=== PATIENT | female | born 1995 | race Asian ===

== ENCOUNTER 2016-09-08 23:10 | Emergency (ER) | payer BC, OTHER ==
[~2016-09-08] VITALS: Ht 160 cm; Wt 50.5 kg
[2016-09-08 23:10] VITALS: TEMP 36.5; Ht 160 cm; Wt 50.5 kg
[2016-09-09] MEDS ORDERED: PHENERGAN 25MG HOMEPACK PO ONE (02:30)
[2016-09-09] MEDS ORDERED: LEVONORGESTREL (EMERGENCY OC) 1.5 MG TAB PO ONE (02:30)
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
[2016-09-09 03:36] VITALS: BP 122/66; PULSE 94; O2SAT 100
== END 2016-09-09 03:38 | disposition home or self-care (01) ==
LOC: C.EDC 23:10 → EDBD 23:10 → C.EDC 09-09 03:38
DX: Z04.41 Encounter for examination and observation following alleged adult rape (principal); J45.909 Unspecified asthma, uncomplicated

== ENCOUNTER 2016-12-22 04:30 | Emergency (ER) | payer BC, OTHER ==
[~2016-12-22] VITALS: Ht 160 cm; Wt 50.9 kg
[2016-12-22 04:47] VITALS: TEMP 36.3; Ht 160 cm; Wt 50.9 kg
[2016-12-22] MEDS ORDERED: ONDANSETRON INJ 2 MG/ML 2 ML VIAL IV STA (05:09)
[2016-12-22] MEDS ORDERED: MoRPHine SULFATE 4 MG/ML 1 ML CARP\\VIAL IV ONE (05:15)
[2016-12-22] MEDS ORDERED: SODIUM CHLORIDE 0.9% 1000ML 1,000 ML IV ONE (05:15)
[2016-12-22 05:54] LABS: BUN/CREATININE RATIO 20.8 (10-20); CALCIUM 8.2 mg/dl (8.5-10.1); CREATININE 0.68 mg/dl (0.60-1.20); POTASSIUM 3.4 mmol/L (3.5-5.1)
[2016-12-22 05:58] LABS: BASO % 0.5 %; BASO ABS # 0.05 K/uL (0-0.2); COMPLETE YES; HEMATOCRIT 37.9 % (37-47); IG% 0.2 %; LYMPH % 21.9 %; LYMPH ABS # 2.27 K/uL (1.2-3.4); MEAN CELL VOLUME 83.7 fL (80-100); MEAN CORPUSCULAR HEMOGLOBIN 26.9 pg (25-34); MEAN CORPUSCULAR HGB CONC 32.2 g/dl (32-36); MEAN PLATELET VOLUME 8.8 fL (7.4-10.4); MONO % 6.2 %; NEUT % 70.2 %; PLATELET COUNT 267 K/uL (130-400); RED BLOOD COUNT 4.53 M/uL (4.2-5.4); WHITE BLOOD COUNT 10.37 K/uL (4.8-10.8)
[2016-12-22] MEDS ORDERED: ACETAMINOPHEN IV 100 ML IV ONE (06:15)
--- NOTE | 2016-12-22 06:30 | DIAGNOSTIC IMAGING REPORT ---
EXAMINATION: PELVIC ULTRASOUND CLINICAL HISTORY: RLQ abd pain PAIN COMPARISON STUDY: None FINDINGS: The uterus measured 9 cm. The endometrial stripe measured 18 mm. The right ovary measured 3.7 cm maximum dimension. Normal vascular flow. The left ovary measured 3.4 cm maximum dimension. Normal vascular flow. There is no ultrasonographic evidence of ovarian torsion. It should be noted that ovarian torsion can be present with normal Doppler ultrasonographic findings. There was no evidence of pathologic free pelvic fluid. IMPRESSION: Endometrial thickening possibly secondary to the patient's menstrual cycle versus endometrial hyperplasia. Otherwise negative study. Electronically signed by: Melo Moore M.D. 12/22/2016 6:28 AM Dictated Date/Time: 12/22/2016 6:27 AM
[2016-12-22] MEDS ORDERED: OPTIRAY 320 IV PRN (07:15)
--- NOTE | 2016-12-22 07:21 | EMERGENCY ROOM VISIT NOTE ---
History First contact with patient: 07:05 Chief Complaint: ABDOMINAL PAIN Stated Complaint: ABD PAIN Nursing Triage Summary: right lower abd pain unrelieved by motrin 1/2 hour ago pain sometimes dulled with motrin History of Present Illness Patient case was signed out to me at 0700 hrs. by Schuyler Hensley PA-C. Please refer to his note regarding the complete history of present illness. No other pertinent history was elicited. Review of Systems Please refer to Schuyler Hensley PA-C initial note. Past Medical/Surgical History Medical Problems: (1) Asthma (2) Shingles Family History Patient reports no known family medical history. Please refer to Schuyler Hensley PA-C initial note. Social History Smoking Status: Never Smoker Alcohol Use: occasionally Marital Status: single Housing Status: lives with roommate Occupation Status: [employer] student Social History: Please refer to Schuyler Hensley PA-C initial note. Current/Historical Medications Scheduled Sulfa/Trimethoprim (Bactrim Ds 800MG/160MG), 1 TAB PO BID Allergies Coded Allergies: No Known Allergies (Unverified , 12/22/16) Physical Exam Vital Signs Date Time Temp Pulse Resp B/P Pulse Ox O2 Delivery O2 Flow Rate FiO2 12/22/16 08:37 88 18 111/77 100 Room Air 12/22/16 07:10 78 16 109/74 99 Room Air 12/22/16 06:19 76 16 111/63 99 Room Air 12/22/16 04:47 36.3 86 16 118/82 100 Room Air Physical Exam Please refer to Schuyler Hensley PA-C initial note. Medical Decision & Procedures ER Provider Diagnostic Interpretation: ABDOMEN AND PELVIS CT WITH IV AND ORAL CONTRAST CT DOSE: 268.02 mGy.cm HISTORY: Pelvic pain RLQ abd pain TECHNIQUE: Multiaxial CT images of the abdomen and pelvis were performed following the use of intravenous and oral contrast. COMPARISON STUDY: 05/21/2014 FINDINGS: Lung bases are clear. Liver spleen and pancreas are unremarkable. The kidneys enhance uniformly. Bowel pattern is considered nonobstructive. The appendix is air-filled and is unremarkable. Uterus is anteflexed. There is rather significant thickening of the bladder wall. Possibility of cystitis is considered. There is trace amount of infiltrative change of the fat surrounding the bladder. Bowel pattern again is nonobstructive throughout. IMPRESSION: 1. Normal appendix. 2. Wall thickening of the bladder raising the possibility of cystitis. Correlation with urinalysis is suggested. 3. Study is otherwise negative. Electronically signed by: Melo Moore M.D. 12/22/2016 7:50 AM Dictated Date/Time: 12/22/2016 7:45 AM Laboratory Results 12/22/16 05:15 Red Blood Count 4.53, Mean Corpuscular Volume 83.7, Mean Corpuscular Hemoglobin 26.9, Mean Corpuscular Hemoglobin Concent 32.2, Mean Platelet Volume 8.8, Neutrophils (%) (Auto) 70.2, Lymphocytes (%) (Auto) 21.9, Monocytes (%) (Auto) 6.2, Eosinophils (%) (Auto) 1.0, Basophils (%) (Auto) 0.5, Neutrophils # (Auto) 7.29, Lymphocytes # (Auto) 2.27, Monocytes # (Auto) 0.64, Eosinophils # (Auto) 0.10, Basophils # (Auto) 0.05 12/22/16 05:15 Test 12/22/16 05:10 12/22/16 05:15 Urine Color YELLOW Urine Appearance CLEAR (CLEAR) Urine pH 6.0 (4.5-7.5) Urine Specific Jay 1.013 (1.000-1.030) Urine Protein NEG (NEG) Urine Glucose (UA) NEG (NEG) Urine Ketones NEG (NEG) Urine Occult Blood NEG (NEG) Urine Nitrite NEG (NEG) Urine Bilirubin NEG (NEG) Urine Urobilinogen NEG (NEG) Urine Leukocyte Esterase TRACE (NEG) Urine WBC (Auto) 5-10 /hpf (0-5) Urine RBC (Auto) 0-4 /hpf (0-4) Urine Hyaline Casts (Auto) 0 /lpf (0-5) Urine Epithelial Cells (Auto) >30 /lpf (0-5) Urine Bacteria (Auto) NEG (NEG) Urine Test NEG (NEG) White Blood Count 10.37 K/uL (4.8-10.8) Red Blood Count 4.53 M/uL (4.2-5.4) Hemoglobin 12.2 g/dL (12.0-16.0) Hematocrit 37.9 % (37-47) Mean Corpuscular Volume 83.7 fL (80-100) Mean Corpuscular Hemoglobin 26.9 pg (25-34) Mean Corpuscular Hemoglobin Concent 32.2 g/dl (32-36) Platelet Count 267 K/uL (130-400) Mean Platelet Volume 8.8 fL (7.4-10.4) Neutrophils (%) (Auto) 70.2 % Lymphocytes (%) (Auto) 21.9 % Monocytes (%) (Auto) 6.2 % Eosinophils (%) (Auto) 1.0 % Basophils (%) (Auto) 0.5 % Neutrophils # (Auto) 7.29 K/uL (1.4-6.5) Lymphocytes # (Auto) 2.27 K/uL (1.2-3.4) Monocytes # (Auto) 0.64 K/uL (0.11-0.59) Eosinophils # (Auto) 0.10 K/uL (0-0.5) Basophils # (Auto) 0.05 K/uL (0-0.2) RDW Standard Deviation 41.9 fL (36.4-46.3) RDW Coefficient of Variation 13.7 % (11.5-14.5) Immature Granulocyte % (Auto) 0.2 % Immature Granulocyte # (Auto) 0.02 K/uL (0.00-0.02) Anion Gap 4.0 mmol/L (3-11) Est Creatinine Clear Calc Drug Dose 105.2 ml/min Estimated GFR () 144.9 Estimated GFR (Non- 125.0 BUN/Creatinine Ratio 20.8 (10-20) Calcium Level 8.2 mg/dl (8.5-10.1) Total Bilirubin 0.4 mg/dl (0.2-1) Aspartate Amino Transf (AST/SGOT) 11 U/L (15-37) Alanine Aminotransferase (ALT/SGPT) 15 U/L (12-78) Alkaline Phosphatase 37 U/L (45-117) Total Protein 6.9 gm/dl (6.4-8.2) Albumin 3.5 gm/dl (3.4-5.0) Globulin 3.4 gm/dl (2.5-4.0) Albumin/Globulin Ratio 1.0 (0.9-2) Lipase 96 U/L (73-393) Medications Administered Medications (Trade) Dose Ordered Sig/Reji Route Start Time Stop Time Status Last Admin Dose Admin Morphine Sulfate 4 mg 4 mg NOW ONCE IV 5/6/17 05:15 12/22/16 05:16 DC 12/22/16 05:28 4 MG Sodium Chloride (Nss 1000ml) 1,000 ml @ 999 mls/hr Q1H1M ONCE IV 12/22/16 05:15 12/22/16 06:15 DC 12/22/16 05:15 999 MLS/HR Ondansetron HCl 4 mg 4 mg NOW STAT IV 12/22/16 05:09 12/22/16 05:11 DC 12/22/16 05:27 4 MG Acetaminophen (Ofirmev Iv) 100 ml @ 400 mls/hr NOW ONCE IV 12/22/16 06:15 12/22/16 06:29 DC 12/22/16 06:15 400 MLS/HR Medical Decision Patient case was signed out to me at 0700 hrs. patient was evaluated shortly after 7 AM by myself, and was resting comfortably consuming the CT contrast dye. She at this time notes the pain is dull, but tolerable. I informed her that if she would experience worsening pain she is to notify staff and she'll provide with more pain medication. At this time we're awaiting CT scan. Patient was reevaluated numerous times struck her stay. After the CT scan results were provided by the radiologist, I did inform the patient the findings. I did correlate with her urinalysis and it does not appear to be a convincing UTI at this time. The patient also requested I speak with her mother after verifying consent. I spoke with the patient's mother and discussed all the findings, as well as the patient. It appears that the patient is likely experiencing either a subclinical UTI, or what is more likely pain related to bowel distention secondary to gas. The patient is nontoxic in appearance, at this time appears stable for discharge. Her case was discussed with my attending, and the decision was made to treat for pain secondary to gas causing bowel distention. The mother requested that I provide the patient with an antibiotic for potential UTI in case you develop urinary symptoms in the next few days. I do believe this is reasonable as there is questionable thickening of the bladder on CT scan. The patient was provided a copy of her lab work and CT scan of which she is to follow-up with her family doctor for. They were educated upon management today's findings, educated upon the importance of follow-up, educated upon worrisome symptoms which to return and she was discharged home in good condition. In evaluation treatment this patient following differential diagnoses were entertained: UTI, pyelonephritis, renal calculi, appendicitis, mesenteric adenitis, epiploic appendage I disc, ovarian torsion, , among others. Impression Primary Impression: Right lower quadrant abdominal pain Additional Impressions: Bladder wall thickening Hypokalemia Departure Information Dispostion Home / Self-Care Condition GOOD Prescriptions Sulfa/Trimethoprim (Bactrim Ds 800MG/160MG) Tab 1 TAB PO BID for 5 Days, #10 TAB Prov: Rodri Guallpa PA-C 12/22/16 Referrals No Doctor, Assigned (PCP) Patient Instructions My [facility] Additional Instructions You have been treated in the Emergency Department your Abdominal Pain. Laboratory results and imaging studies have ruled out any emergent causes for your abdominal pain which would warrant admission or surgery. For pain control, you can use the following [id number] medicines (if >12 yo): - Regular strength (325mg/tab) Tylenol (acetaminophen) 2 tabs every 4-6 hours as needed. Do not exceed 12 tablets in a 24 hour period. Avoid taking more than 3 grams (3000 mg) of Tylenol per day. This includes any other sources of acetaminophen you may take on a regular basis. - Regular strength (200 mg/tab) Advil (ibuprofen) 1-2 tabs every 4-6 hours as needed. Do not exceed a dose of 3200 mg per day. Drink plenty of water and stay well hydrated. As with any trip to the Emergency Department, you should follow-up with your Primary Care Provider from today's visit. Return to the emergency department if your symptoms persist despite treatment plan outlined above or if the following symptoms occur: increased fevers, chills , worsening nausea/vomiting, blood in your stool or urine. I have printed out your laboratory results and imaging studies. Please follow- up with your family doctor regarding these. Please return to the emergency department with any new/concerning symptoms. As we discussed I have also prescribed her Bactrim. This is one tablet every 12 hours for 5 days. Please only take this if urinary symptoms would worsen. Problem Qualifiers
[2016-12-22 07:47] LABS: URINE APPEARANCE CLEAR (CLEAR); URINE BILIRUBIN NEG (NEG); URINE COLOR YELLOW; URINE EPITHELIAL CELL AUTO >30 /lpf (0-5); URINE NITRITE NEG (NEG); URINE SPECIFIC GRAVITY 1.013 (1.000-1.030); UROBILINOGEN NEG (NEG); ZZUR CULT IF INDIC CLEAN CATCH NO
--- NOTE | 2016-12-22 07:51 | DIAGNOSTIC IMAGING REPORT ---
ABDOMEN AND PELVIS CT WITH IV AND ORAL CONTRAST CT DOSE: 268.02 mGy.cm HISTORY: Pelvic pain RLQ abd pain TECHNIQUE: Multiaxial CT images of the abdomen and pelvis were performed following the use of intravenous and oral contrast. COMPARISON STUDY: 05/21/2014 FINDINGS: Lung bases are clear. Liver spleen and pancreas are unremarkable. The kidneys enhance uniformly. Bowel pattern is considered nonobstructive. The appendix is air-filled and is unremarkable. Uterus is anteflexed. There is rather significant thickening of the bladder wall. Possibility of cystitis is considered. There is trace amount of infiltrative change of the fat surrounding the bladder. Bowel pattern again is nonobstructive throughout. IMPRESSION: 1. Normal appendix. 2. Wall thickening of the bladder raising the possibility of cystitis. Correlation with urinalysis is suggested. 3. Study is otherwise negative. Electronically signed by: Melo Moore M.D. 12/22/2016 7:50 AM Dictated Date/Time: 12/22/2016 7:45 AM
[2016-12-22 07:56] LABS: MANUAL MICROSCOPIC REQUIRED? NO; REVIEW REQ? NO
[2016-12-22] MEDS ORDERED: SULF800T23 PO (08:25)
[2016-12-22 08:37] VITALS: BP 111/77; PULSE 88; O2SAT 100
--- NOTE | 2016-12-23 07:25 | EMERGENCY ROOM VISIT NOTE ---
History First contact with patient: 04:56 Chief Complaint: ABDOMINAL PAIN Stated Complaint: ABD PAIN Nursing Triage Summary: right lower abd pain unrelieved by motrin 1/2 hour ago pain sometimes dulled with motrin History of Present Illness The patient is a 21 year old female who presents to the Emergency Room with complaints of right lower quadrant abdominal pain for the past 2 days. Patient states her symptoms are dull and increasing severity. She rates her discomfort a 7/10 that does not radiate. She denies chance of and is not on her menses. The patient does not report fever, chills, chest pain, chest tightness , shortness of breath, or upper abdominal pain. No vaginal drainage or discharge. She has not had abdominal surgery in the past. Review of Systems More than 10 systems were reviewed and otherwise negative with the exception of history of present illness. Past Medical/Surgical History Medical Problems: (1) Asthma (2) Shingles Family History Patient reports no known family medical history. Social History Smoking Status: Never Smoker Alcohol Use: occasionally Marital Status: single Housing Status: lives with roommate Occupation Status: [employer] student Current/Historical Medications Scheduled Sulfa/Trimethoprim (Bactrim Ds 800MG/160MG), 1 TAB PO BID Allergies Coded Allergies: No Known Allergies (Unverified , 12/22/16) Physical Exam Vital Signs Date Time Temp Pulse Resp B/P Pulse Ox O2 Delivery O2 Flow Rate FiO2 12/22/16 08:37 88 18 111/77 100 Room Air 12/22/16 07:10 78 16 109/74 99 Room Air 12/22/16 06:19 76 16 111/63 99 Room Air 12/22/16 04:47 36.3 86 16 118/82 100 Room Air Pain Rating (0-10): 0 Physical Exam VITALS: Vitals are noted on the nurse's note and reviewed by myself. Vital signs stable. GENERAL: Well-developed, well-nourished, female, who is in no acute distress and resting comfortably. Patient is cooperative with the examination. HEAD: Normocephalic atraumatic. HEART: Regular rate and rhythm without murmurs gallops or rubs. LUNGS: Clear to auscultation bilaterally without wheezes, rales or rhonchi. No retractions or accessory muscle use. ABDOMEN: Positive normal bowel sounds x 4. Soft with positive right lower quadrant tenderness on palpation. No rebound or guarding. No CVA tenderness. MUSCULOSKELETAL: No muscle atrophy, erythema, or edema noted. Medical Decision & Procedures Laboratory Results 12/22/16 05:15 Red Blood Count 4.53, Mean Corpuscular Volume 83.7, Mean Corpuscular Hemoglobin 26.9, Mean Corpuscular Hemoglobin Concent 32.2, Mean Platelet Volume 8.8, Neutrophils (%) (Auto) 70.2, Lymphocytes (%) (Auto) 21.9, Monocytes (%) (Auto) 6.2, Eosinophils (%) (Auto) 1.0, Basophils (%) (Auto) 0.5, Neutrophils # (Auto) 7.29, Lymphocytes # (Auto) 2.27, Monocytes # (Auto) 0.64, Eosinophils # (Auto) 0.10, Basophils # (Auto) 0.05 12/22/16 05:15 Test 12/22/16 05:10 12/22/16 05:15 Urine Color YELLOW Urine Appearance CLEAR (CLEAR) Urine pH 6.0 (4.5-7.5) Urine Specific [place] 1.013 (1.000-1.030) Urine Protein NEG (NEG) Urine Glucose (UA) NEG (NEG) Urine Ketones NEG (NEG) Urine Occult Blood NEG (NEG) Urine Nitrite NEG (NEG) Urine Bilirubin NEG (NEG) Urine Urobilinogen NEG (NEG) Urine Leukocyte Esterase TRACE (NEG) Urine WBC (Auto) 5-10 /hpf (0-5) Urine RBC (Auto) 0-4 /hpf (0-4) Urine Hyaline Casts (Auto) 0 /lpf (0-5) Urine Epithelial Cells (Auto) >30 /lpf (0-5) Urine Bacteria (Auto) NEG (NEG) Urine Test NEG (NEG) White Blood Count 10.37 K/uL (4.8-10.8) Red Blood Count 4.53 M/uL (4.2-5.4) Hemoglobin 12.2 g/dL (12.0-16.0) Hematocrit 37.9 % (37-47) Mean Corpuscular Volume 83.7 fL (80-100) Mean Corpuscular Hemoglobin 26.9 pg (25-34) Mean Corpuscular Hemoglobin Concent 32.2 g/dl (32-36) Platelet Count 267 K/uL (130-400) Mean Platelet Volume 8.8 fL (7.4-10.4) Neutrophils (%) (Auto) 70.2 % Lymphocytes (%) (Auto) 21.9 % Monocytes (%) (Auto) 6.2 % Eosinophils (%) (Auto) 1.0 % Basophils (%) (Auto) 0.5 % Neutrophils # (Auto) 7.29 K/uL (1.4-6.5) Lymphocytes # (Auto) 2.27 K/uL (1.2-3.4) Monocytes # (Auto) 0.64 K/uL (0.11-0.59) Eosinophils # (Auto) 0.10 K/uL (0-0.5) Basophils # (Auto) 0.05 K/uL (0-0.2) RDW Standard Deviation 41.9 fL (36.4-46.3) RDW Coefficient of Variation 13.7 % (11.5-14.5) Immature Granulocyte % (Auto) 0.2 % Immature Granulocyte # (Auto) 0.02 K/uL (0.00-0.02) Anion Gap 4.0 mmol/L (3-11) Est Creatinine Clear Calc Drug Dose 105.2 ml/min Estimated GFR () 144.9 Estimated GFR (Non- 125.0 BUN/Creatinine Ratio 20.8 (10-20) Calcium Level 8.2 mg/dl (8.5-10.1) Total Bilirubin 0.4 mg/dl (0.2-1) Aspartate Amino Transf (AST/SGOT) 11 U/L (15-37) Alanine Aminotransferase (ALT/SGPT) 15 U/L (12-78) Alkaline Phosphatase 37 U/L (45-117) Total Protein 6.9 gm/dl (6.4-8.2) Albumin 3.5 gm/dl (3.4-5.0) Globulin 3.4 gm/dl (2.5-4.0) Albumin/Globulin Ratio 1.0 (0.9-2) Lipase 96 U/L (73-393) Medications Administered Medications (Trade) Dose Ordered Sig/Reji Route Start Time Stop Time Status Last Admin Dose Admin Morphine Sulfate 4 mg 4 mg NOW ONCE IV 12/22/16 05:15 12/22/16 05:16 DC 12/22/16 05:28 4 MG Sodium Chloride (Nss 1000ml) 1,000 ml @ 999 mls/hr Q1H1M ONCE IV 12/22/16 05:15 12/22/16 06:15 DC 12/22/16 05:15 999 MLS/HR Ondansetron HCl 4 mg 4 mg NOW STAT IV 12/22/16 05:09 12/22/16 05:11 DC 12/22/16 05:27 4 MG Acetaminophen (Ofirmev Iv) 100 ml @ 400 mls/hr NOW ONCE IV 12/22/16 06:15 12/22/16 06:29 DC 12/22/16 06:15 400 MLS/HR ED Course Physical exam and history were performed. Nursing notes and EMR were reviewed. Patient appears to have right lower quadrant abdominal pain for the past few days. She is tender in the right lower quadrant. Because of this I did elect to establish IV access in order labs. The patient was hydrated and medicated as above. CT scan with contrast was performed. The patient's blood work is as above and was reviewed. She does not have a significantly elevated white blood cell count, anemia, bandemia, or gross electrolyte imbalance. Lipase and transaminases are nondiagnostic. Urine is with some contamination and possible infection with culture pending. She is not . The patient remained in stable condition until the time of shift change. The case was discussed with Rodri Guallpa PA-C, who will assume care at this time. Please see Mr Guallpa's dictation for further patient course, plan, and disposition. The chart was completed utilizing [employer] Speech Voice Recognition Software. Grammatical errors, random word insertions, pronoun errors, and incomplete sentences are an occasional consequence of this system due to software limitations, ambient noise, and hardware issues. Any formal questions or concerns about the content, text, or information contained within the body of this dictation should be directly addressed to the provider for clarification. . Medical Decision Differential diagnosis: Etiologies such as appendicitis, diverticulitis, PUD, biliary pathology, UTI, pancreatitis, obstruction, mesenteric ischemia, aortic pathology, infections, inflammatory bowel disease, renal colic, as well as others were entertained. Impression Primary Impression: Right lower quadrant abdominal pain Additional Impressions: Bladder wall thickening Hypokalemia Departure Information Dispostion Home / Self-Care Condition GOOD Prescriptions Sulfa/Trimethoprim (Bactrim Ds 800MG/160MG) Tab 1 TAB PO BID for 5 Days, #10 TAB Prov: Rodri Guallpa PA-C 12/22/16 Referrals No Doctor, Assigned (PCP) Forms HOME CARE DOCUMENTATION FORM, IMPORTANT VISIT INFORMATION Patient Instructions My [facility] Additional Instructions You have been treated in the Emergency Department your Abdominal Pain. Laboratory results and imaging studies have ruled out any emergent causes for your abdominal pain which would warrant admission or surgery. For pain control, you can use the following [id number] medicines (if >12 yo): - Regular strength (325mg/tab) Tylenol (acetaminophen) 2 tabs every 4-6 hours as needed. Do not exceed 12 tablets in a 24 hour period. Avoid taking more than 3 grams (3000 mg) of Tylenol per day. This includes any other sources of acetaminophen you may take on a regular basis. - Regular strength (200 mg/tab) Advil (ibuprofen) 1-2 tabs every 4-6 hours as needed. Do not exceed a dose of 3200 mg per day. Drink plenty of water and stay well hydrated. As with any trip to the Emergency Department, you should follow-up with your Primary Care Provider from today's visit. Return to the emergency department if your symptoms persist despite treatment plan outlined above or if the following symptoms occur: increased fevers, chills , worsening nausea/vomiting, blood in your stool or urine. I have printed out your laboratory results and imaging studies. Please follow- up with your family doctor regarding these. Please return to the emergency department with any new/concerning symptoms. As we discussed I have also prescribed her Bactrim. This is one tablet every 12 hours for 5 days. Please only take this if urinary symptoms would worsen. Problem Qualifiers
== END 2016-12-22 08:37 | disposition home or self-care (01) ==
LOC: C.EDB 04:31
DX: R10.31 Right lower quadrant pain (principal); N32.89 Other specified disorders of bladder; E87.6 Hypokalemia; J45.909 Unspecified asthma, uncomplicated; Z87.898 Personal history of other specified conditions